=== PATIENT | female | born 1990 | race Native Hawaiian/Other Pacific Islander ===

== ENCOUNTER 2020-01-09 16:27 | Emergency (ER) | payer OTHER ==
[~2020-01-09] VITALS: Ht 172.7 cm; Wt 68.0 kg
--- NOTE | 2020-01-09 16:35 | NUR ---
assisted pt going to bed 2. aox4. no c/o chest pain at this time.
--- NOTE | 2020-01-09 16:38 | NUR ---
SEEN AND EVALUATED BY MD WITH NEW ORDERS. NOTED
[2020-01-09] MEDS ORDERED: LORAZEPAM 0.5 MG TABLET ONE (16:58)
[2020-01-09] MEDS ORDERED: LORAZEPAM 0.5 MG TABLET PO ONE (17:00)
[2020-01-09 17:45] VITALS: BP 127/76
== END 2020-01-09 17:45 | disposition home or self-care (01) ==
LOC: ER 16:33
DX: F41.1 Generalized anxiety disorder (principal)

== ENCOUNTER 2020-04-20 20:54 | Emergency (ER) | payer OTHER ==
[~2020-04-20] VITALS: Ht 172.7 cm; Wt 63.5 kg
--- NOTE | 2020-04-20 21:06 | NUR ---
PT AAOX4. AMBULATORY WITH STEADY GAIT. BIBSELF C/O FEVER, CHILLS, N/V/D, GEN BODY PAIN, FATIGUE, LIGHT HEADEDNESS X3 DAYS. AWAITING FOR EVAL AND ORDERS.
[2020-04-20] MEDS ORDERED: ACETAMINOPHEN ES 500 MG TABLET ONE (21:42)
[2020-04-20 21:52] LABS: BILIRUBIN,URINE Negative (NEGATIVE); COLOR,URINE YELLOW (YELLOW); LEUKOCYTE ESTERASE ,URINE Negative (NEGATIVE); NITRITE, URINE Negative (NEGATIVE); PH,URINE 7.5 (5.0-8.0); PROTEIN,URINE Negative (NEGATIVE); UGLUCOSE Negative (NEGATIVE); UROBILINOGEN,URINE 0.2 EU/dL (0.2)
--- NOTE | 2020-04-20 21:55 | NUR ---
COVID SWAB COLLECTED AND SENT OUT
[2020-04-20] MEDS ORDERED: ACETAMINOPHEN ES 500 MG TABLET PO ONE (22:00)
[2020-04-20] MEDS ORDERED: IBUPROFEN 600 MG TABLET PO ONE (22:30)
[2020-04-20] MEDS ORDERED: IV NS 0.9% 1,000 ML BAG IV ONE (22:30)
--- NOTE | 2020-04-20 22:34 | NUR ---
LINE ESTABLISHED, LABS SENT.
[2020-04-20] MEDS ORDERED: IBUPROFEN 600 MG TABLET ONE (22:57)
[2020-04-20 23:12] LABS: BASOPHILS % (AUTO) 0.4 % (0.0-2.0); EOSINOPHILS % (AUTO) 0.7 % (0.0-6.0); HEMATOCRIT 38 % (33-45); HEMOGLOBIN 12.5 g/dL (11.5-14.8); LYMPHOCYTES # (AUTO) 0.7 /CMM (0.8-4.8); LYMPHOCYTES % (AUTO) 14.2 % (20.0-44.0); MEAN CORPUSCULAR HGB CONC 33 g/dl (31.0-36.0); MEAN CORPUSCULAR VOLUME 94 fL (82-100); MONOCYTES # (AUTO) 0.9 /CMM (0.1-1.30); MONOCYTES % (AUTO) 17.5 % (2.0-12.0); NEUTROPHILS # (AUTO) 3.4 /CMM (1.8-8.9); NEUTROPHILS % (AUTO) 67.2 % (43.0-81.0); PLATELET COUNT (AUTO) 231 /CMM (150-450); RED BLOOD CELL COUNT(AUTO) 3.99 MIL/uL (4.0-5.2)
[2020-04-20 23:20] LABS: CALCIUM, SERUM 9.1 mg/dL (8.5-10.1); CARBON DIOXIDE 25 mmol/L (21-32); CHLORIDE 103 mmol/L (98-107); CREATININE 0.7 mg/dL (0.6-1.3); GLUCOSE 109 mg/dL (74-106); POTASSIUM 3.9 mmol/L (3.5-5.1); SODIUM SERUM 139 mmol/L (136-145); UREA NITROGEN, BLOOD 12 mg/dL (7-18)
--- NOTE | 2020-04-20 23:53 | NUR ---
GEORGEID SWABBED, SENT TO LAB.
--- NOTE | 2020-04-21 01:29 | NUR ---
SPOKE TO , STATED WILL DO A REPEAT TROP LEVEL.
--- NOTE | 2020-04-21 01:49 | NUR ---
EMT AT BEDSIDE FOR REPEAT EKG
[2020-04-21 03:02] VITALS: BP 129/71
--- NOTE | 2020-04-21 03:02 | NUR ---
IV removed. Catheter intact and site benign. Pressure and 4x4 applied to site. No bleeding noted. Patient discharged to home in stable condition. Written and verbal after care instructions given. Patient verbalizes understanding of instruction. Pt ambulated with steady gait. vss.
--- NOTE | 2020-04-22 15:37 | NUR ---
NOTIFIED OF POSITIVE COVID 19 STATUS
== END 2020-04-21 03:03 | disposition home or self-care (01) ==
LOC: ER 20:55
DX: U07.1 COVID-19 (principal); M79.10 Myalgia, unspecified site; R42 Dizziness and giddiness; R00.0 Tachycardia, unspecified; R94.31 Abnormal electrocardiogram [ECG] [EKG]; Z82.49 Family history of ischemic heart disease and other diseases of the circulatory system; I34.1 Nonrheumatic mitral (valve) prolapse
CPT/HCPCS: 36415 ×2; 71045; 80048; 81003; 84484 ×2; 84703; 85025; 85378; 87426; 93005 ×2; 96360; 99285; C9803 ×2; J7030; U0003

== ENCOUNTER 2020-05-02 22:48 | Emergency (ER) | payer OTHER ==
[~2020-05-02] VITALS: Ht 172.7 cm; Wt 59.0 kg
[2020-05-02] MEDS ORDERED: IBUP-1957 PO (23:17)
[2020-05-02] MEDS ORDERED: GUAIFENESIN/CODEINE 10 ML UDC ONE (23:23)
[2020-05-02] MEDS ORDERED: GUAIFENESIN/D-METHORPHAN HB 5 ML UDC ONE (23:23)
[2020-05-02] MEDS ORDERED: GUAIFENESIN/D-METHORPHAN HB 5 ML UDC PO ONE (23:30)
[2020-05-02 23:39] VITALS: BP 133/69
== END 2020-05-02 23:39 | disposition home or self-care (01) ==
LOC: ER 22:55
DX: U07.1 COVID-19 (principal); F41.9 Anxiety disorder, unspecified; R94.31 Abnormal electrocardiogram [ECG] [EKG]; I34.1 Nonrheumatic mitral (valve) prolapse; Z88.8 Allergy status to other drugs, medicaments and biological substances; R03.0 Elevated blood-pressure reading, without diagnosis of hypertension
CPT/HCPCS: 71045-TC